=== PATIENT | female | born 1980 ===

== ENCOUNTER 2017-08-05 09:09 | Emergency (ER) | payer MEDICAID ==
[2017-08-05 09:19] VITALS: BMI 35.9
--- NOTE | 2017-08-05 09:58 | ED PDOC ---
HPI: Abdomen Time Seen by Provider: 08/05/17 09:39 Chief Complaint (Nursing): Abdominal Pain Chief Complaint (Provider): abdominal pain History Per: Patient History/Exam Limitations: no limitations Onset/Duration Of Symptoms: Days (x4) Current Symptoms Are (Timing): Still Present Location Of Pain/Discomfort: RLQ, Suprapubic Associated Symptoms: denies: Nausea, Vomiting, Diarrhea, Urinary Symptoms ( dysuria) Additional Complaint(s): Sejal Sheppard is a 37 year old female, with a past medical history of uterine CA and endometriosis, who presents to the emergency department complaining of RLQ and suprapubic pain onset for x4 days. Patient was seen here last week and diagnosed with endometriosis. Patient had a ultrasound done at that time. She denies any nausea, vomiting, diarrhea or dysuria. No further medical complaints. PMD: None provided. Past Medical History Reviewed: Historical Data, Nursing Documentation, Vital Signs Vital Signs: Last Vital Signs Temp 98.3 F 08/05/17 09:16 Pulse 81 08/05/17 09:16 Resp 20 08/05/17 09:16 BP 127/83 08/05/17 09:16 Pulse Ox 99 08/05/17 12:25 - Medical History PMH: Denies: Chronic Kidney Disease Other PMH: uterine CA, endometriosis - Surgical History Surgical History: No Surg Hx - Family History Family History: States: No Known Family Hx - Home Medications Home Medications: Ambulatory Orders Medication Instructions Recorded Oxycodone HCl/Acetaminophen 1 tab PO Q6 PRN #12 tab 04/21/14 [Percocet 325 mg-5 mg] traMADol [Ultram] 50 mg PO Q8 #10 tab 08/05/17 - Allergies Allergies/Adverse Reactions: Allergies Allergy/AdvReac Type Severity Reaction Status Date / Time No Known Allergies Allergy Verified 04/20/14 20:10 Review of Systems ROS Statement: Except As Marked, All Systems Reviewed And Found Negative Gastrointestinal: Positive for: Abdominal Pain (RLQ, suprapubic). Negative for : Nausea, Vomiting, Diarrhea Genitourinary Female: Negative for: Dysuria Physical Exam - Reviewed Nursing Documentation Reviewed: Yes Vital Signs Reviewed: Yes - Physical Exam Appears: Positive for: Non-toxic, No Acute Distress Head Exam: Positive for: ATRAUMATIC, NORMOCEPHALIC Skin: Positive for: Normal Color, Warm, Dry Eye Exam: Positive for: Normal appearance, EOMI, PERRL Neck: Positive for: Painless ROM, Supple Cardiovascular/Chest: Positive for: Regular Rate, Rhythm. Negative for: Murmur Respiratory: Positive for: Normal Breath Sounds. Negative for: Respiratory Distress Gastrointestinal/Abdominal: Positive for: Soft, Tenderness (RLQ and suprapubic) . Negative for: Guarding, Rebound Back: Positive for: Normal Inspection. Negative for: L CVA Tenderness, R CVA Tenderness, Vertebral Tenderness Extremity: Positive for: Normal ROM (all extremities). Negative for: Deformity , Swelling Neurologic/Psych: Positive for: Alert, Oriented. Negative for: Motor/Sensory Deficits - Laboratory Results Result Diagrams: 08/05/17 10:46 08/05/17 10:46 - ECG O2 Sat by Pulse Oximetry: 99 (RA) Pulse Ox Interpretation: Normal Medical Decision Making Medical Decision Making: Initial Plan: --Abd & Pelvis IV Contrast only [CT] --CMP --Urine dipstick --Urine --CBC w/ differential --Reevaluation 12:[address] FINDINGS: LOWER THORAX: Unremarkable. LIVER: Diminished attenuation is mildly appreciated throughout the liver once again and pattern suggesting mild hepatic steatosis diffusely. GALLBLADDER AND BILE DUCTS: Unremarkable. PANCREAS: Unremarkable. No gross lesion or ductal dilatation. SPLEEN: Unremarkable. ADRENALS: Unremarkable. No mass. KIDNEYS AND URETERS: Unremarkable. No hydronephrosis. No solid mass. VASCULATURE: Unremarkable. No aortic aneurysm. BOWEL: Unremarkable. No obstruction. No gross mural thickening. APPENDIX: Normal appendix. PERITONEUM: Unremarkable. No free fluid. No free air. LYMPH NODES: Unremarkable. No enlarged lymph nodes. BLADDER: Unremarkable. REPRODUCTIVE: Unremarkable. BONES: No acute fracture. OTHER FINDINGS: There is a complex cystic lesion identified at the inferior margins of the right rectus abdominis muscle or common plaques at the level of the mid pelvis once again. This lesion is smaller in size previously measuring 10.9 x 2.2 x 4.0 cm (superior by anteroposterior by transverse dimensions) as compared to the current size of 6.7 x 2.4 x 4.9 cm. Given patient's clinical history of a least partial hysterectomy in the past, this may reflect postoperative residual complex seroma/hematoma. No increase in surrounding reticular changes seen in the local fat to suggest an active infection here, however, clinical correlation is advised. IMPRESSION: 1. Diminishing complex fluid collection at the inferior midline rectus abdominus musculature measures 6.7 cm greatest dimension compared to 10.9 cm previously. No suspicious interval findings related at this time. 2. Mild diffuse hepatic steatosis with remainder the examination unremarkable. Scribe Attestation: Documented by Natan Iqbal, acting as a scribe for Robert De Anda MD Provider Scribe Attestation: All medical record entries made by the Scribe were at my direction and personally dictated by me. I have reviewed the chart and agree that the record accurately reflects my personal performance of the history, physical exam, medical decision making, and the department course for this patient. I have also personally directed, reviewed, and agree with the discharge instructions and disposition. Disposition - Clinical Impression Clinical Impression: Endometriosis - Patient ED Disposition Is Patient to be Admitted: No Counseled Patient/Family Regarding: Studies Performed, Diagnosis, Need For Followup, Rx Given - Disposition Referrals: [facility] [Outside] Disposition: Routine/Home Disposition Time: 14:10 Condition: FAIR Prescriptions: traMADol [Ultram] 50 mg PO Q8 #10 tab Instructions: Endometriosis Forms: [employer] (Eth[place]ian) Print Language: SLOVAK
[2017-08-05 10:55] LABS: BASO % 0.6 % (0.0-2.0); EOS # 0.1 K/uL (0.0-0.7); EOS % 1.3 % (0.0-4.0); HEMOGLOBIN 14.1 g/dL (12.0-16.0); LYMPH % 29.4 % (20.0-40.0); MEAN CELL VOLUME 93.6 fl (81.0-99.0); MEAN CORPUSCULAR HEMOGLOBIN 33.4 pg (27.0-31.0); MEAN CORPUSCULAR HGB CONC 35.7 g/dL (33.0-37.0); MEAN PLATELET VOLUME 8.8 fl (7.2-11.7); MONO # 0.6 K/uL (0.0-0.8); MONO % 8.9 % (0.0-10.0); NEUT % 59.8 % (50.0-75.0); NRBC % 0.2 % (0.0-0.0); RBC 4.23 Mil/uL (3.80-5.20); RED CELL DISTRIBUTION WIDTH 13.5 % (11.5-14.5); WHITE BLOOD COUNT 6.7 K/uL (4.8-10.8)
[2017-08-05 11:09] LABS: ALB/GLOB RATIO 1.2 (1.0-2.1); ALBUMIN 3.9 g/dL (3.5-5.0); ALT/SGPT 35 U/L (9-52); AST/SGOT 22 U/L (14-36); BLOOD UREA NITROGEN 8 mg/dl (7-17); CALCIUM 9.1 mg/dL (8.4-10.2); GFR AFRICAN-AMERICAN > 60; GFR NON-AFRICAN AMERICAN > 60
[2017-08-05] MEDS ORDERED: Iohexol 300 100 ML IJ ONE (11:39)
--- NOTE | 2017-08-05 12:23 | CT ---
PROCEDURE: CT Abdomen and Pelvis with contrast HISTORY: RLQ pain COMPARISON: And pelvis CT with contrast 04/21/2014. TECHNIQUE: Following the intravenous administration of iodinated contrast material, a CT examination of the abdomen and pelvis performed from the domes of the diaphragms to the symphysis pubis with reformatted datasets provided not only axial but also sagittal and coronal planes. Oral contrast was not administered as per referring physician request. Contrast dose: Omnipaque 300, 95 cc Radiation dose: Total exam DLP = 819.55 mGy-cm. This CT exam was performed using one or more of the following dose reduction techniques: Automated exposure control, adjustment of the mA and/or kV according to patient size, and/or use of iterative reconstruction technique. FINDINGS: LOWER THORAX: Unremarkable. LIVER: Diminished attenuation is mildly appreciated throughout the liver once again and pattern suggesting mild hepatic steatosis diffusely. GALLBLADDER AND BILE DUCTS: Unremarkable. PANCREAS: Unremarkable. No gross lesion or ductal dilatation. SPLEEN: Unremarkable. ADRENALS: Unremarkable. No mass. KIDNEYS AND URETERS: Unremarkable. No hydronephrosis. No solid mass. VASCULATURE: Unremarkable. No aortic aneurysm. BOWEL: Unremarkable. No obstruction. No gross mural thickening. APPENDIX: Normal appendix. PERITONEUM: Unremarkable. No free fluid. No free air. LYMPH NODES: Unremarkable. No enlarged lymph nodes. BLADDER: Unremarkable. REPRODUCTIVE: Unremarkable. BONES: No acute fracture. OTHER FINDINGS: There is a complex cystic lesion identified at the inferior margins of the right rectus abdominis muscle or common plaques at the level of the mid pelvis once again. This lesion is smaller in size previously measuring 10.9 x 2.2 x 4.0 cm (superior by anteroposterior by transverse dimensions) as compared to the current size of 6.7 x 2.4 x 4.9 cm. Given patient's clinical history of a least partial hysterectomy in the past, this may reflect postoperative residual complex seroma/hematoma. No increase in surrounding reticular changes seen in the local fat to suggest an active infection here, however, clinical correlation is advised. IMPRESSION: 1. Diminishing complex fluid collection at the inferior midline rectus abdominus musculature measures 6.7 cm greatest dimension compared to 10.9 cm previously. No suspicious interval findings related at this time. 2. Mild diffuse hepatic steatosis with remainder the examination unremarkable.
[2017-08-05 14:32] VITALS: BP 133/71; PULSE 84; RESP 16; TEMP 97.9; O2SAT 98
== END 2017-08-05 14:32 | disposition home or self-care (01) ==
LOC: H.ER 09:09
DX: N80.9 Endometriosis, unspecified (principal); Z85.42 Personal history of malignant neoplasm of other parts of uterus
CPT/HCPCS: 74177; 80053; 81025; 85025; 96374; 99284; J1885; Q9967